=== PATIENT | female | born 1980 | race Caucasian/White ===

== ENCOUNTER 2016-10-24 14:45 | Emergency (ER) | payer OTHER ==
[~2016-10-24] VITALS: Ht 175.3 cm; Wt 156.8 kg
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
[2016-10-24 15:01] VITALS: BP 119/72; PULSE 96; RESP 18; O2SAT 97
[2016-10-24] MEDS ORDERED: Ketorolac 30 mg/mL 2 mL Inj IM ONE (16:05)
--- NOTE | 2016-10-24 16:32 | DRSVH ---
PROCEDURE: X-RAY RIGHT HAND, MINIMUM THREE VIEWS ([id number]) INDICATIONS: right hand pain TECHNIQUE: 3 views of the hand(s) acquired. COMPARISON: None. FINDINGS: Bones: No fractures or dislocations. Carpal bones are normally aligned. No suspicious bony lesions . Soft tissues: No suspicious soft tissue calcifications. IMPRESSION: No acute radiographic findings. Dictated by: Pita Foley M.D. on 10/24/2016 at 16:27 Approved by: Pita Foley M.D. on 10/24/2016 at 16:31
--- NOTE | 2016-10-24 18:28 | DRSVH ---
PROCEDURE: CT THORACIC SPINE WITHOUT CONTRAST ([id number]) INDICATIONS: midline cervical tenderness, thoracic tenderness, TECHNIQUE: Noncontrast 3 mm thick sections acquired through the region of interest in the thoracic spine. Sagit jenifer and coronal reformats were then constructed. For radiation dose reduction, the following was use d: automated exposure control. COMPARISON: [facility], CT, CT CERVICAL SPINE WO CON, 10/24/2016, 18:02. FINDINGS: Image quality: Excellent. Bones: There is normal overall bony alignment. No acute vertebral body compression fractures. No s uspicious sclerotic or lytic bony lesions. Central spinal canal is of normal overall caliber. Soft tissues: No paravertebral masses or hematomas. Visualized posteromedial lungs appear clear. IMPRESSION: Mild to moderate degenerative disc disease along the thoracic spine, large body habitus, no definite source of acute pain is found. Specifically no compression fractures seen and there is no suspicion by this examination of presence of discitis or osteomyelitis. Dictated by: Alfredo Hernandez M.D. on 10/24/2016 at 18:25 Approved by: Alfredo Hernandez M.D. on 10/24/2016 at 18:26
--- NOTE | 2016-10-24 18:29 | DRSVH ---
PROCEDURE: CT CERVICAL SPINE WITHOUT CONTRAST ([id number]) INDICATIONS: midline cervical tenderness, thoracic tenderness, TECHNIQUE: Noncontrast 3 mm thick sections acquired from the skull base to the T4 level. Sagittal and coronal r eformats were then constructed. For radiation dose reduction, the following was used: automated exp osure control, adjustment of mA and/or kV according to patient size. COMPARISON: [facility], CT, CT THORACIC SPINE WO CON, 10/24/2016, 18:02. FINDINGS: Image quality: Excellent. Bones: No fractures or dislocations. Visualized superior ribs are intact. Soft tissues: Prevertebral soft tissues are normal in thickness. No paravertebral hematomas. No ap ical pneumothoraces. IMPRESSION: There is no sign of trauma, or underlying infection or neoplasm. Quality of visualizati on is somewhat limited by body habitus. Dictated by: Alfredo Hernandez M.D. on 10/24/2016 at 18:26 Approved by: Alfredo Hernandez M.D. on 10/24/2016 at 18:27
[2016-10-24] MEDS ORDERED: CYCL10TA9 PO (19:13)
[2016-10-24 19:21] VITALS: BP 134/78; PULSE 79; RESP 19; O2SAT 100
== END 2016-10-24 19:22 | disposition home or self-care (01) ==
LOC: SED 14:45
DX: S16.1XXA Strain of muscle, fascia and tendon at neck level, initial encounter (principal); S29.012A Strain of muscle and tendon of back wall of thorax, initial encounter; S60.221A Contusion of right hand, initial encounter; V44.5XXA Car driver injured in collision with heavy transport vehicle or bus in traffic accident, initial encounter; Y93.89 Activity, other specified; Y92.410 Unspecified street and highway as the place of occurrence of the external cause; Y99.8 Other external cause status; M79.644 Pain in right finger(s); F17.200 Nicotine dependence, unspecified, uncomplicated
CPT/HCPCS: 72125; 72128; 73130; 96372; 99285; J1885